=== PATIENT | female | born 1975 | race Two or more races ===

== ENCOUNTER 2024-08-13 10:30 | Outpatient (RCR) | payer MEDICAID, SELFPAY ==
--- NOTE | 2024-08-03 10:46 | PTNOTE_ITS ---
PT OP Initial Eval Patient Information Outpatient Physical Therapy Treatment Date: 08/03/24 Visit Reasons: RT Trigger finger Medical Diagnosis: M65.321; M65.331 Treatment Dx #1: Right Hand Mobility Deficits Treatment Dx #2: Right Hand Pain Start of Care: 08/03/24 Date of Onset: 05/25/24 Smoking Status Smoking Status: Never smoker Initial Assessment Subjective: Pt is a 48 y/o female s/p right 2nd and 3rd trigger finger release 05/25/24. Pt had trigger fingers ~ 1.5 years prior to deciding to do the surgery. 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 Pt will benefit from physical therapy to increase ROM, strength, and work on hand dexterity. 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 1) Increase 2nd and 3rd digit flexion AROM WNL in 8 wks to be able to perform a full fist 2) Increase right care director strength to 35 lbs in 6 wks to be able to perform gripping activities 3) Decrease hand pain to 2/10 in 6 wks to be able to resume work duties 4) Increase right wrist MMTs grossly to 4-/5 in 6 wks to be able to perform recreational activities 5) Indep with HEP Treatment Plan 1) Manual Therapy 2) Therapeutic Activities 3) Therapeutic Exercises 4) Modalities (ice, heat) Frequency and Duration: 2 x wk for 8 wks Certification Dates: 08/03/24 to 11/03/24 Procedure Charges OP PT Eval Mod Complex 30 minutes: Yes
--- NOTE | 2024-08-13 11:36 | PT.ODAYNRPT ---
PT Outpatient Daily Note OP Daily Note Outpatient Physical Therapy Treatment Date: 08/13/24 Visit Reasons: RT Trigger finger Subjective: Pt's hand better but still notice the fingers swell intermittently. Objective: Please see flow chart for list of ther ex performed Assessment: tolerate exercises with minimal pain; progressing with hand resistance exercises Plan: Continue with PT Length of Time (minutes) of Treatment: 30 Minutes Procedure Charges Therapeutic Exercise 30 minutes: Yes
== END 2024-08-13 23:59 | disposition home or self-care (01) ==
LOC: CPTX 10:30
PROVIDERS: PCP Surgery Surgery of the Hand; Referring Provider Surgery Surgery of the Hand; Visit Provider Surgery Surgery of the Hand
DX: M79.641 Pain in right hand (principal); Z98.890 Other specified postprocedural states
CPT/HCPCS: 97110; 97162

== ENCOUNTER 2024-09-04 11:00 | Outpatient (RCR) | payer MEDICAID, SELFPAY ==
--- NOTE | 2024-08-16 11:33 | PT.ODAYNRPT ---
PT Outpatient Daily Note OP Daily Note Outpatient Physical Therapy Treatment Date: 08/16/24 Visit Reasons: RT trigger finger Subjective: Pt reports swellins is taking long to go down, as per pt hand was even more swollen before surgery. Pt shared her pain has improved. Objective: Please see flow sheet for ther ex list. Assessment: Performed STM pt tolerated well. Plan: Continue with POC. Length of Time (minutes) of Treatment: 30 Minutes Procedure Charges Therapeutic Exercise 30 minutes: Yes
--- NOTE | 2024-08-20 11:43 | PT.ODAYNRPT ---
PT Outpatient Daily Note OP Daily Note Outpatient Physical Therapy Treatment Date: 08/20/24 Visit Reasons: RT trigger finger Subjective: Pt's finger is about the same. Pt continues to have swelling in the fingers. Pt started using ice more at home which helps a little. Objective: Please see flow chart for list of ther ex performed Assessment: Pt is progressing with hand resistance exercises, however, continues to have full finger flexion with 2nd and 3rd digit due to edema. Pt encourage to ice more at home to help with edema management as well as consult with provider for further anti-inflammatory medication Plan: Continue with PT Length of Time (minutes) of Treatment: 30 Minutes Procedure Charges Therapeutic Exercise 30 minutes: Yes
--- NOTE | 2024-08-23 10:47 | PT.ODAYNRPT ---
PT Outpatient Daily Note OP Daily Note Outpatient Physical Therapy Treatment Date: 08/23/24 Visit Reasons: RT trigger finger Subjective: Pt's fingers feel okay. Pt sitll has swelling around the fingers which ice at home is helping minimally. Objective: Please see flow chart for list of ther ex performed Assessment: cues for patient to use 2nd and 3rd digit with all exercises where making a fist is indicating to help recruit finger flexion AROM. Pt is progressing with hand resistance exercises, however, continues to exhibit edema in the fingers. Post ice helped with edema. Plan: Continue with PT Length of Time (minutes) of Treatment: 30 Minutes Procedure Charges Therapeutic Exercise 30 minutes: Yes
--- NOTE | 2024-09-04 13:29 | PT.ODAYNRPT ---
PT Outpatient Daily Note OP Daily Note Outpatient Physical Therapy Treatment Date: 09/04/24 Visit Reasons: RT trigger finger Subjective: Pt's fingers feel about the same. No change in pain or swelling lately. Pt recently seen CONSUMER MARKETING MANAGER and recommends over the counter ibuprofen to help with pain and inflammation. Objective: Please see flow chart for list of ther ex performed Assessment: patient exhibit WFL PROM of the 2nd and 3rd digit post stretching. Pt continues to have mild-moderate edema around the 2nd and 3rd digit impeding full finger AROM Plan: Continue with PT Length of Time (minutes) of Treatment: 30 Minutes Procedure Charges Therapeutic Exercise 30 minutes: Yes
--- NOTE | 2024-10-02 08:37 | PT.ODS1RPT ---
PT OP Progress/Discharge Note Date of Service: 10/02/24 Progress Note/DC Note Progress Note/Discharge Note: DC Note Patient Information Visit Reasons: RT trigger finger Service Continue Service or Discharge: Discharge Discharge Date: 10/02/24 Status Assessment: Pt has been seen for 6 visits (eval + 5 visits). Pt last treated on 09/02/24. Pt has not been back to therapy and has been contact several times without success. At this time Pt will be d/c from care due to non-compliance per attendance policy. Pt did not meet set goals in therapy; thank you for your referrals.
== END 2024-09-12 23:59 | disposition home or self-care (01) ==
LOC: CPTX 11:00
PROVIDERS: PCP Surgery Surgery of the Hand; Referring Provider Surgery Surgery of the Hand; Visit Provider Surgery Surgery of the Hand
DX: M79.641 Pain in right hand (principal); Z98.890 Other specified postprocedural states
CPT/HCPCS: 97110